=== PATIENT | male | born 1990 | race American Indian/Alaskan Native ===

== ENCOUNTER 2021-08-08 17:20 | Emergency (ER) | payer SELFPAY ==
[2021-08-08 22:54] VITALS: BP 112/77
[2021-08-08] MEDS ORDERED: IBUPROFEN 800 MG TAB PO ONE (23:35)
--- NOTE | 2021-08-08 23:47 | Emergency Department Report ---
ED General Adult HPI - General Chief complaint: Extremity Injury, Lower Stated complaint: LEG/FEEL SWELLING Time Seen by Provider: 08/08/21 23:42 Source: patient Mode of arrival: Ambulatory Limitations: No Limitations - History of Present Illness Initial comments: Patient 30-year-old male who presents for left lower extremity pain and swelling x3 days. Patient denies history of PE denies history of blood clot denies suspicious travel or prolonged sitting. 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 Patient rates current symptoms at 5/10 concerned as he began to develop some shortness of breath today. Denies fever denies cough denies chills denies nausea or vomiting. Patient denies other symptoms at this time. - Related Data Previous Rx's Medication Instructions Recorded Last Taken Type Naproxen 500 mg PO BID PRN #30 08/09/21 Unknown Rx Allergies Allergy/AdvReac Type Severity Reaction Status Date / Time No Known Allergies Allergy Verified 08/08/21 22:44 ED Review of Systems ROS: Stated complaint: LEG/FEEL SWELLING Other details as noted in HPI Constitutional: malaise Eyes: as per HPI ENT: congestion. denies: ear pain, throat pain Respiratory: cough, shortness of breath. denies: wheezing Cardiovascular: denies: chest pain, palpitations Endocrine: no symptoms reported Gastrointestinal: denies: abdominal pain, nausea, vomiting, diarrhea Genitourinary: denies: urgency, dysuria Musculoskeletal: back pain, myalgia Skin: as per HPI Neurological: as per HPI Psychiatric: anxiety Hematological/Lymphatic: as per HPI ED Past Medical Hx - Past Medical History Previous Medical History?: No - Surgical History Past Surgical History?: Yes Additional Surgical History: Bilateral knee due to a basket ball injury. - Medications Home Medications: Home Medications Medication Instructions Recorded Confirmed Last Taken Type Naproxen 500 mg PO BID PRN #30 08/09/21 Unknown Rx ED Physical Exam - General Limitations: No Limitations General appearance: alert, in no apparent distress - Head Head exam: Present: atraumatic, normocephalic - Eye Eye exam: Present: normal appearance, EOMI Pupils: Present: normal accommodation - ENT ENT exam: Present: normal orophraynx, mucous membranes moist - Neck Neck exam: Present: normal inspection, full ROM - Respiratory Respiratory exam: Present: normal lung sounds bilaterally. Absent: respiratory distress, wheezes, stridor, chest wall tenderness - Cardiovascular Cardiovascular Exam: Present: normal rhythm, tachycardia, normal heart sounds. Absent: systolic murmur, diastolic murmur, rubs, gallop - GI/Abdominal GI/Abdominal exam: Present: soft, normal bowel sounds. Absent: distended, tenderness, bruit, hernia - Rectal Rectal exam: Present: deferred - Extremities Exam Extremities exam: Present: normal inspection - Back Exam Back exam: Present: normal inspection, full ROM. Absent: tenderness, CVA tenderness (R), CVA tenderness (L), paraspinal tenderness - Neurological Exam Neurological exam: Present: alert, oriented X3 - Psychiatric Psychiatric exam: Present: normal affect, normal mood - Skin Skin exam: Present: warm, dry, intact, normal color. Absent: rash ED Course Vital Signs 08/08/21 08/08/21 22:43 22:54 Temperature 98.6 F Pulse Rate 109 H Respiratory 17 Rate Blood Pressure 112/77 O2 Sat by Pulse 100 Oximetry ED Medical Decision Making - Lab Data Result diagrams: 08/09/21 00:41 08/09/21 00:41 Labs 08/09/21 08/09/21 08/09/21 00:41 00:41 00:41 WBC 9.5 RBC 3.54 L Hgb 10.5 L Hct 31.3 L MCV 88 MCH 30 MCHC 34 RDW 15.6 H Plt Count 327 PT 11.6 L INR 0.76 L APTT 23.3 L Sodium 144 Potassium 3.6 Chloride 109.9 H Carbon Dioxide 25 Anion Gap 13 BUN 13 Creatinine 0.8 Estimated GFR > 60 BUN/Creatinine Ratio 16 Glucose 86 Calcium 8.5 Total Bilirubin 0.50 AST 65 H ALT 95 H Alkaline Phosphatase 120 Total Creatine Kinase 107 Total Protein 6.0 L Albumin 3.6 L Albumin/Globulin Ratio 1.5 - Radiology Data Radiology results: report reviewed, image reviewed XR tibia fibula 2V LT INDICATION / CLINICAL INFORMATION: LLE pain and swelling. COMPARISON: None available. FINDINGS: Tibial glory related to remote tibial fracture, which is healed in anatomic alignment. There is no acute fracture or malalignment. Nonspecific soft tissue swelling of the superficial infrapatellar soft tissues with tiny linear radiodensities, may be postoperative. There is diffuse soft tissue swelling of the foreleg. No soft tissue gas. Impression: 1. Nonspecific soft tissue swelling of the superficial infrapatellar soft tissues with tiny linear radiodensities, may be postoperative in etiology. There is also nonspecific diffuse soft tissue swelling of the foreleg. This could reflect cellulitis in the appropriate clinical setting. No soft tissue gas. 2. No acute osseous findings. Signer Name: Selwyn Guerra MD Signed: 08/09/2021 12:11 AM Workstation Name: [id number] Transcribed By: JS Dictated By: SELWYN GUERRA MD Electronically Authenticated By: SELWYN GUERRA MD Signed Date/Time: 08/09/2110 DD/ TD/TT: XR chest routine 2V INDICATION / CLINICAL INFORMATION: sob. COMPARISON: None available. FINDINGS: SUPPORT DEVICES: None. HEART /PULMONARY VASCULATURE: No significant abnormality. LUNGS / PLEURA: No significant pulmonary or pleural abnormality. No pneumothorax. ADDITIONAL FINDINGS: No significant additional findings. IMPRESSION: 1. No acute findings. Signer Name: Selwyn Guerra MD Signed: 08/09/2021 12:08 AM Workstation Name: [id number] Transcribed By: JS Dictated By: SELWYN GUERRA MD Electronically Authenticated By: SELWYN GUERRA MD Signed Date/Time: 08/09/217 DD/ TD/TT: XR tibia fibula 2V LT INDICATION / CLINICAL INFORMATION: LLE pain and swelling. COMPARISON: None available. FINDINGS: Tibial glory related to remote tibial fracture, which is healed in anatomic alignment. There is no acute fracture or malalignment. Nonspecific soft tissue swelling of the superficial infrapatellar soft tissues with tiny linear radiodensities, may be postoperative. There is diffuse soft tissue swelling of the foreleg. No soft tissue gas. Impression: 1. Nonspecific soft tissue swelling of the superficial infrapatellar soft tissues with tiny linear radiodensities, may be postoperative in etiology. There is also nonspecific diffuse soft tissue swelling of the foreleg. This could reflect cellulitis in the appropriate clinical setting. No soft tissue gas. 2. No acute osseous findings. Signer Name: Selwyn Guerra MD Signed: 08/09/2021 12:11 AM Workstation Name: [id number] Transcribed By: JS Dictated By: SELWYN GUERRA MD Electronically Authenticated By: SELWYN GUERRA MD Signed Date/Time: 08/09/21 0011 DD/ 0008 TD/TT: DUPLEX DOPPLER LOWER EXTREMITY VEINS, BILATERAL INDICATION / CLINICAL INFORMATION: LLE pain swelling. TECHNIQUE: Duplex doppler imaging was performed through the veins of both lower extrem ities using venous compression and other maneuvers. COMPARISON: None available. FINDINGS: RIGHT COMMON FEMORAL VEIN: Negative. RIGHT FEMORAL VEIN: Negative. RIGHT POPLITEAL VEIN: Negative. RIGHT CALF VEINS: Negative. LEFT COMMON FEMORAL VEIN: Negative. LEFT FEMORAL VEIN: Negative. LEFT POPLITEAL VEIN: Negative. LEFT CALF VEINS: Negative. ADDITIONAL FINDINGS: None. IMPRESSION: 1. No sonographic evidence for DVT in either lower extremity. Signer Name: Selwyn Guerra MD Signed: 08/09/2021 1:24 AM Workstation Name: [id number] Transcribed By: JACQUELYN Dictated By: SELWYN GUERRA MD Electronically Authenticated By: SELWYN GUERRA MD Signed Date/Time: 08/09/21123 DD/ 2 TD/TT: - Medical Decision Making Chest x-ray normal no opacities no infiltrate, duplex Dopplers bilateral extremities no DVT circulation is normal, right tib-fib x-ray no fracture moderate soft tissue swelling, labs are noted normal. Plan Home, follow-up primary care doctor. Follow-up with orthopedics, return to emergency department should symptoms worsen. Critical care attestation.: If time is entered above; I have spent that time in minutes in the direct care of this critically ill patient, excluding procedure time. ED Disposition Clinical Impression: Lower leg edema, Musculoskeletal pain of left lower extremity Disposition: HOME / SELF CARE / HOMELESS Is pt being admited?: No Does the pt Need Aspirin: No Condition: Stable Instructions: Edema, [id number]-[id number] Additional Instructions: Take medication as prescribed, follow-up with orthopedics in 2 to 3 days. Follow-up with your primary care doctor in 2 to 3 days. Prescriptions: Naproxen 500 mg PO BID PRN #30 PRN Reason: pain Referrals: BRENDA INTERIANO MD [Staff Physician] - 3-5 Days LAKISHA STACK MD [Staff Physician] - 3-5 Days Forms: Work/School Release Form(ED) Time of Disposition: 02:09
--- NOTE | 2021-08-09 00:13 | XRay Report ---
XR chest routine 2V INDICATION / CLINICAL INFORMATION: sob. COMPARISON: None available. FINDINGS: SUPPORT DEVICES: None. HEART /PULMONARY VASCULATURE: No significant abnormality. LUNGS / PLEURA: No significant pulmonary or pleural abnormality. No pneumothorax. ADDITIONAL FINDINGS: No significant additional findings. IMPRESSION: 1. No acute findings. Signer Name: Amandeep Smith MD Signed: 08/09/2021 12:08 AM Workstation Name: [id number]
--- NOTE | 2021-08-09 00:15 | XRay Report ---
XR tibia fibula 2V LT INDICATION / CLINICAL INFORMATION: LLE pain and swelling. COMPARISON: None available. FINDINGS: Tibial glory related to remote tibial fracture, which is healed in anatomic alignment. There is no acut e fracture or malalignment. Nonspecific soft tissue swelling of the superficial infrapatellar soft ti ssues with tiny linear radiodensities, may be postoperative. There is diffuse soft tissue swelling of the foreleg. No soft tissue gas. Impression: 1. Nonspecific soft tissue swelling of the superficial infrapatellar soft tissues with tiny linear ra diodensities, may be postoperative in etiology. There is also nonspecific diffuse soft tissue swellin g of the foreleg. This could reflect cellulitis in the appropriate clinical setting. No soft tissue g as. 2. No acute osseous findings. Signer Name: Amandeep Smith MD Signed: 08/09/2021 12:11 AM Workstation Name: [id number]
[2021-08-09 01:09] LABS: Hematocrit 31.3 % (35.5-45.6); Hemoglobin 10.5 gm/dl (11.8-15.2); Mean Corpuscular HGB Conc 34 % (32-34); Mean Corpuscular Volume 88 fl (84-94); Platelet Count 327 K/mm3 (140-440); Red Blood Count 3.54 M/mm3 (3.65-5.03); Red Cell Distribution Width 15.6 % (13.2-15.2)
[2021-08-09 01:23] LABS: Alanine Aminotransferase 95 units/L (7-56); Albumin 3.6 g/dL (3.9-5); BUN/Creatinine Ratio 16; Blood Urea Nitrogen 13 mg/dL (9-20); Calcium 8.5 mg/dL (8.4-10.2); Hemolysis Index 12
--- NOTE | 2021-08-09 01:28 | Vascular Lab Report ---
DUPLEX DOPPLER LOWER EXTREMITY VEINS, BILATERAL INDICATION / CLINICAL INFORMATION: LLE pain swelling. TECHNIQUE: Duplex doppler imaging was performed through the veins of both lower extremities using venous maría kike and other maneuvers. COMPARISON: None available. FINDINGS: RIGHT COMMON FEMORAL VEIN: Negative. RIGHT FEMORAL VEIN: Negative. RIGHT POPLITEAL VEIN: Negative. RIGHT CALF VEINS: Negative. LEFT COMMON FEMORAL VEIN: Negative. LEFT FEMORAL VEIN: Negative. LEFT POPLITEAL VEIN: Negative. LEFT CALF VEINS: Negative. ADDITIONAL FINDINGS: None. IMPRESSION: 1. No sonographic evidence for DVT in either lower extremity. Signer Name: Amandeep Smith MD Signed: 08/09/2021 1:24 AM Workstation Name: [id number]
[2021-08-09 01:36] LABS: INR 0.76 (0.87-1.13)
[2021-08-09 01:37] LABS: Partial Thromboplastin Time 23.3 Sec. (24.2-36.6)
[2021-08-09] MEDS ORDERED: HYDROcodone/ACETAMINOPHEN 5-325 MG TAB PO ONE (02:12)
[2021-08-09 03:00] LABS: Basophils % (Manual) 0 % (0.0-1.8); Eosinophils % (Manual) 0 % (0.0-4.3); Total Cells Counted 100
[2021-08-09 03:01] LABS: Anisocytosis 1+; Burr Cells Few
[2021-08-09 03:02] LABS: Ovalocytes Rare; Platelet Estimate Consistent w Auto
== END 2021-08-09 03:22 | disposition home or self-care (01) ==
LOC: ED 17:20
DX: R22.43 Localized swelling, mass and lump, lower limb, bilateral (principal); M79.662 Pain in left lower leg
CPT/HCPCS: 36415; 71046; 80053; 82550; 85007; 85025; 85610; 85730; 93970; 99284